=== PATIENT | male | born 1980 | race Caucasian/White ===

== ENCOUNTER 2023-09-18 08:38 | Inpatient (IN) | payer SELFPAY ==
[~2023-09-18] VITALS: Ht 172.7 cm; Wt 64.7 kg
[2023-09-18 09:20] LABS: HEMATOCRIT 43.4 % (42.0-52.0); HEMOGLOBIN 14.7 g/dl (13.5-17.5); MEAN CORPUSCULAR HEMOGLOBIN 30.5 pg (27.0-33.0); MEAN CORPUSCULAR HGB CONC 33.9 g/dl (32.0-36.5); PLATELET COUNT, AUTOMATED 291 10^3/uL (150-450); RED BLOOD COUNT 4.82 10^6/uL (4.30-6.10); WHITE BLOOD COUNT 10.3 10^3/uL (4.0-10.0)
[2023-09-18 09:43] LABS: ETHYL ALCOHOL (ETHANOL) < 0.003 % (0.000-0.010)
[2023-09-18 09:44] LABS: SALICYLATE LEVEL < 3.0 MG/DL (<30)
[2023-09-18 09:45] LABS: ALBUMIN 4.3 G/DL (3.2-5.2); ALKALINE PHOSPHATASE 70 U/L (46-116); ALT/SGPT 15 U/L (7.0-40); AST/SGOT 20 U/L (<34); BILIRUBIN,DIRECT 0.3 MG/DL (<0.4); BILIRUBIN,TOTAL 0.9 MG/DL (0.3-1.2); BLOOD UREA NITROGEN 20 MG/DL (9-23); CALCIUM LEVEL 9.4 MG/DL (8.5-10.1); CARBON DIOXIDE LEVEL 25 MMOL/L (20-31); CHLORIDE LEVEL 107 MMOL/L (98-107); CREATININE FOR GFR 1.26 MG/DL (0.70-1.30); GLOMERULAR FILTRATION RATE > 60.0 (>60); GLUCOSE, FASTING 84 MG/DL (60-100); POTASSIUM SERUM 3.9 MMOL/L (3.5-5.1); SODIUM LEVEL 141 MMOL/L (136-145); TOTAL PROTEIN 7.8 G/DL (5.7-8.2)
[2023-09-18 09:46] LABS: THYROID STIMULATING HORMONE 2.535 uIU/ML (0.55-4.78)
[2023-09-18] MEDS ORDERED: LATU1TAB PO (11:46)
[2023-09-18] MEDS ORDERED: ADDE10CA3 PO (11:46)
[2023-09-18] MEDS: ACETAMINOPHEN TAB 650MG DOSE (2X325MG) PO ONE (13:49)
[2023-09-18] MEDS ORDERED: PROBCAP14 PO (13:56)
[2023-09-18] MEDS ORDERED: MULTTAB61 PO (13:56)
[2023-09-18] MEDS ORDERED: [UNRECOGNIZED DRUG - CODE] PO (13:56)
[2023-09-18] MEDS ORDERED: BENF150C3 PO (13:56)
[2023-09-18] MEDS ORDERED: ONDA4TAB6 PO (13:56)
[2023-09-18] MEDS ORDERED: BIOT1CAP2 PO (13:56)
[2023-09-18] MEDS ORDERED: SIME125T16 PO (13:56)
[2023-09-18] MEDS ORDERED: MAG100TA PO (13:56)
[2023-09-18] MEDS ORDERED: APPL300T4 PO (13:56)
[2023-09-18] MEDS ORDERED: POTA99CA2 PO (13:56)
[2023-09-18] MEDS ORDERED: HOME MED LIST COMPLETE! XX SCH (14:00)
[2023-09-18 15:03] LABS: AMPHETAMINES LEVEL URINE NEGATIVE (NEGATIVE); BARBITURATES URINE NEGATIVE (NEGATIVE); BENZODIAZEPINES URINE NEGATIVE (NEGATIVE); COCAINE METABOLITE URINE NEGATIVE (NEGATIVE); METHADONE URINE NEGATIVE (NEGATIVE); OPIATES URINE NEGATIVE (NEGATIVE); PHENCYCLIDINE URINE NEGATIVE (NEGATIVE)
[2023-09-18 15:20] LABS: CANNABINOIDS URINE POSITIVE (NEGATIVE)
[2023-09-18] MEDS ORDERED: MOM 30ML SUSPENSION UDC PO PRN (17:10)
[2023-09-18] MEDS ORDERED: IBUPROFEN 400MG TAB PO PRN (17:10)
[2023-09-18 17:51] VITALS: BP 134/69; TEMP 98.7; O2SAT 100
[2023-09-18] MEDS: diphenhydrAMINE 25MG CAP PO PRN (20:24)
[2023-09-18] MEDS: MAALOX 30 ML SUSP *UDC PO PRN (20:24)
[2023-09-19] MEDS: ONDANSETRON 4MG TAB PO ONE (06:33)
[2023-09-19 06:42] VITALS: BP 158/80; TEMP 97.7; O2SAT 99
[2023-09-19 18:22] VITALS: BP 142/63; TEMP 98.1
[2023-09-19] MEDS: PALIPERIDONE 3MG ER TAB (INVEGA) PO SCH (20:33)
[2023-09-20 06:41] VITALS: BP 146/87; TEMP 97.9; O2SAT 100
[2023-09-20] MEDS: DIVALPROEX 250MG TAB PO SCH (09:20)
[2023-09-20] MEDS: PALIPERIDONE 3MG ER TAB (INVEGA) PO SCH (09:21)
[2023-09-20] MEDS: INFLUENZA QUADRIVALENT PF VACCINE 0.5ML SYRINGE IM.IMMUN ONE (09:22)
[2023-09-20 18:33] VITALS: BP 129/90; TEMP 97.6
[2023-09-20] MEDS: ACETAMINOPHEN TAB 650MG DOSE (2X325MG) PO PRN (20:01)
[2023-09-20] MEDS: DIVALPROEX 500 MG TAB PO SCH (20:01)
[2023-09-20] MEDS: traZODone 50 MG TAB PO PRN (22:25)
[2023-09-21] MEDS: OLANZapine ORAL DISINTEGRATING TAB 5MG PO PRN (05:45)
[2023-09-21 06:40] VITALS: BP 159/85; TEMP 97.1; O2SAT 99
[2023-09-21] MEDS: LORazepam 1 MG TAB PO ONE (12:01)
[2023-09-21] MEDS: LORazepam 1 MG TAB PO PRN (18:57)
[2023-09-21] MEDS ORDERED: HALOPERIDOL LACTATE 5MG/ML VIAL XX STA (19:22)
[2023-09-21] MEDS ORDERED: LORazepam 2 MG/ML 1ML VIAL XX STA (19:22)
[2023-09-21] MEDS ORDERED: diphenhydrAMINE 50MG/ML VIAL XX STA (19:22)
[2023-09-21] MEDS: diphenhydrAMINE 50MG CAP XX STA (19:42)
[2023-09-21] MEDS: LORazepam 2 MG TAB PO STA (19:42)
[2023-09-21] MEDS: DIVALPROEX 250MG TAB PO SCH (21:00)
[2023-09-22] MEDS: PROMETHAZINE 25 MG TAB PO ONE (06:42)
[2023-09-22] MEDS: DIVALPROEX 500 MG TAB PO SCH (12:25)
[2023-09-22 16:55] VITALS: BP 133/80; TEMP 97.1; O2SAT 98
[2023-09-23 06:26] VITALS: BP 123/69; TEMP 97.2; O2SAT 99
[2023-09-23] MEDS: PROMETHAZINE 25 MG TAB PO ONE (13:28)
[2023-09-23] MEDS: CALCIUM CARBONATE 500 MG CHEW U/D PO PRN (15:25)
[2023-09-23 16:20] VITALS: BP 126/76; TEMP 97.7; O2SAT 100
[2023-09-23] MEDS: diphenhydrAMINE 50MG CAP PO PRN (21:39)
[2023-09-24] MEDS: OMEPRAZOLE 20MG CAP PO SCH (08:16)
[2023-09-24 18:39] VITALS: BP 140/85; TEMP 97.5
[2023-09-24] MEDS: PALIPERIDONE 3MG ER TAB (INVEGA) PO SCH (20:07)
[2023-09-25 06:37] VITALS: BP 149/72; TEMP 97; O2SAT 98
[2023-09-25 18:59] VITALS: BP 115/56; TEMP 98.4
[2023-09-26 06:09] VITALS: BP 137/85; TEMP 97.8; O2SAT 98
[2023-09-26] MEDS ORDERED: PALIPERIDONE PAL 234MG/1.5ML INJ (INVEGA)(FREE PSY INPT ONLY) IM ONE (12:55)
[2023-09-26] MEDS: PALIPERIDONE PAL 234MG/1.5ML INJ (INVEGA)(FREE PSY INPT ONLY) IM ONE (14:32)
[2023-09-26 18:18] VITALS: BP 143/73; TEMP 97.8
[2023-09-26] MEDS: PALIPERIDONE 3MG ER TAB (INVEGA) PO SCH (21:11)
[2023-09-27 06:05] VITALS: BP 117/58; TEMP 97.6; O2SAT 95
[2023-09-27] MEDS: ONDANSETRON 4MG ORAL DISINTEGRATING TAB PO PRN (17:35)
[2023-09-27 18:31] VITALS: BP 133/86; TEMP 98.2; O2SAT 100
[2023-09-27] MEDS: LIDOCAINE 5% (LIDODERM) PATCH TD SCH (20:50)
[2023-09-28 06:54] VITALS: BP 122/59; TEMP 98.4; O2SAT 100
[2023-09-28 16:12] VITALS: BP 130/61; TEMP 98.2; O2SAT 100
[2023-09-29 06:26] VITALS: BP 115/57; TEMP 98.3; O2SAT 100
[2023-09-29 16:29] VITALS: BP 132/78; TEMP 98; O2SAT 99
[2023-09-30 07:01] VITALS: BP 98/50; TEMP 98.7; O2SAT 100
[2023-09-30] MEDS ORDERED: PALIPERIDONE PAL 156MG/1ML INJ(INVEGA)(FREE PSY INPT ONLY) IM ONE (07:45)
[2023-09-30] MEDS: PALIPERIDONE PAL 156MG/1ML INJ(INVEGA)(FREE PSY INPT ONLY) IM ONE (11:22)
[2023-09-30 15:56] VITALS: BP 128/65; TEMP 98.3; O2SAT 99
[2023-10-01 06:46] VITALS: BP 151/69; TEMP 97.3; O2SAT 97
[2023-10-01 18:00] VITALS: BP 119/74; TEMP 98.3
[2023-10-02 06:25] VITALS: BP 136/58; TEMP 98.1; O2SAT 100
[2023-10-02] MEDS ORDERED: INVE234I IM (08:36)
[2023-10-02] MEDS ORDERED: DEPA1TAB3 PO (08:36)
[2023-10-02] MEDS ORDERED: DEPA250T32 PO (08:36)
[2023-10-02] MEDS ORDERED: OMEP-173 PO (08:36)
== END 2023-10-02 10:07 | disposition home or self-care (01) | DRG 750 ==
LOC: M ED 08:38 → M PSY 17:09 → M ED INP 17:09 → M PSY 17:52
PROVIDERS: ADMIT Student in an Organized Health Care Education/Training Program; ATTEND Student in an Organized Health Care Education/Training Program
DX: F25.0 Schizoaffective disorder, bipolar type (principal); S62.165A Nondisplaced fracture of pisiform, left wrist, initial encounter for closed fracture; G47.00 Insomnia, unspecified; Z11.52 Encounter for screening for COVID-19; W19.XXXA Unspecified fall, initial encounter; Y92.9 Unspecified place or not applicable; Y93.9 Activity, unspecified; K21.9 Gastro-esophageal reflux disease without esophagitis; Z62.810 Personal history of physical and sexual abuse in childhood; Z79.899 Other long term (current) drug therapy; Z88.0 Allergy status to penicillin

== ENCOUNTER → 2024-05-21 | Outpatient (CLI) | payer OTHER ==
[~2024-05-21] MED LIST: ADDE10CA3 PO; APPL300T4 PO; BENF150C3 PO; BIOT1CAP2 PO; DEPA1TAB3 PO; DEPA250T32 PO; INVE234I IM; LATU1TAB PO; MAG100TA PO; MULTTAB61 PO; OMEP-173 PO; ONDA-282 PO; POTA99CA2 PO; PROBCAP14 PO; SIME125T16 PO; [UNRECOGNIZED DRUG - CODE] PO
[2024-05-21 14:15] LABS: BASO % 0.7 % (0.0-1.0); EOS # 0.2 10^3/uL (0.0-0.5); EOS % 3.2 % (0.0-3.0); HEMATOCRIT 38.5 % (42.0-52.0); HEMOGLOBIN 12.8 g/dl (13.5-17.5); LYMPH # 2.6 10^3/uL (1.5-5.0); LYMPH % 48.7 % (24.0-44.0); MEAN CORPUSCULAR HEMOGLOBIN 30.3 pg (27.0-33.0); MEAN CORPUSCULAR HGB CONC 33.2 g/dl (32.0-36.5); MONO # 0.4 10^3/uL (0.0-0.8); MONO % 6.7 % (2.0-8.0); NEUTROPHILS # 2.2 10^3/uL (1.5-8.5); NEUTROPHILS % 40.3 % (36.0-66.0); PLATELET COUNT, AUTOMATED 248 10^3/uL (150-450); RED BLOOD COUNT 4.23 10^6/uL (4.30-6.10); WHITE BLOOD COUNT 5.3 10^3/uL (4.0-10.0)
[2024-05-21 14:30] LABS: ALBUMIN 4.2 G/DL (3.2-5.2); ALKALINE PHOSPHATASE 52 U/L (40-129); ALT/SGPT 12 U/L (7.0-40); AST/SGOT 13 U/L (<34); BILIRUBIN,TOTAL 0.6 MG/DL (0.3-1.2); BLOOD UREA NITROGEN 18 MG/DL (9-23); CALCIUM LEVEL 10.2 MG/DL (8.5-10.1); CARBON DIOXIDE LEVEL 31 MMOL/L (20-31); CHLORIDE LEVEL 105 MMOL/L (98-107); CHOLESTEROL LEVEL 274 MG/DL (<200); CHOLESTEROL RISK RATIO 5.67 (<5); CREATININE FOR GFR 1.07 MG/DL (0.70-1.30); FREE T4 1.17 NG/DL (0.89-1.76); GLOMERULAR FILTRATION RATE > 60.0 (>60); GLUCOSE, FASTING 85 MG/DL (60-100); HDL CHOLESTEROL 48.3 MG/DL (>40); LDL CHOLESTEROL 208.9 MG/DL (<100); NON-HDL-C 225.7 MG/DL; POTASSIUM SERUM 4.4 MMOL/L (3.5-5.1); SODIUM LEVEL 142 MMOL/L (136-145); THYROID STIMULATING HORMONE 4.186 uIU/ML (0.55-4.78); TOTAL PROTEIN 7.6 G/DL (5.7-8.2); TRIGLYCERIDES LEVEL 84 MG/DL (<150)
[2024-05-21 14:34] LABS: HEMOGLOBIN A1c 5.1 % (4.0-6.0)
== END ==
LOC: M PLALAB 09:26
PROVIDERS: ATTEND Student in an Organized Health Care Education/Training Program
DX: Z76.89 Persons encountering health services in other specified circumstances (principal); Z13.1 Encounter for screening for diabetes mellitus; Z13.21 Encounter for screening for nutritional disorder; Z13.220 Encounter for screening for lipoid disorders; Z13.29 Encounter for screening for other suspected endocrine disorder

== ENCOUNTER → 2024-06-27 | Outpatient (CLI) | payer OTHER ==
[2024-06-27 15:41] LABS: HEMATOCRIT 40.1 % (42.0-52.0)
[2024-06-27 15:43] LABS: C REACTIVE PROTEIN QUANTITATIV < 0.50 MG/DL (<1.0); IRON (FE) 113 UG/DL (65-175); PERCENT SATURATION 41.1 % (19.7-50.0); TOTAL IRON BINDING CAPACITY 275 UG/DL (250-425)
[2024-06-27 15:49] LABS: FERRITIN 233.3 NG/ML (10.5-307.3)
[2024-06-27 15:50] LABS: ERYTHROCYTE SEDIMENTATION RATE 18 mm/hr (0-15); VITAMIN B12 LEVEL 467 PG/ML (211-911)
[2024-06-29 02:38] LABS: T P ELECTROPHORESIS SO 7.6 g/dL (6.1-8.1)
== END ==
LOC: M PLALAB 12:53
PROVIDERS: ATTEND Student in an Organized Health Care Education/Training Program
DX: D64.9 Anemia, unspecified (principal); E83.52 Hypercalcemia

== ENCOUNTER → 2024-06-30 | Outpatient (REF) | payer OTHER ==
[2024-07-01 11:51] LABS: PROTEIN CREAT 24H RATIO 45 mg/g creat (<100); T PROTEIN CREAT 24HR RATIO 0.045 (<0.100); Urine Total Protein 49 mg/24 h (<150)
[2024-07-02 09:52] LABS: Urine Albumin % 38 %; Urine Alpha-1-Globulin % 7 %; Urine Alpha-2-Globulin % 22 %; Urine Beta Globulin % 16 %; Urine Gamma Globulin % 16 %
== END ==
LOC: M SFHCPLAZ 14:34
PROVIDERS: ATTEND Student in an Organized Health Care Education/Training Program
DX: E83.52 Hypercalcemia (principal)

== ENCOUNTER → 2024-09-21 | Outpatient (REF) | payer OTHER | LOC: M LAB REF 10:18 | PROVIDERS: ATTEND Internal Medicine | DX: D64.9 Anemia, unspecified (principal) ==

== ENCOUNTER 2024-12-03 17:33 | Emergency (ER) | payer OTHER ==
[~2024-12-03] VITALS: Ht 172.7 cm; Wt 68.2 kg
[~2024-12-03 17:33] MED LIST changes: -DEPA250T32 PO; +DIVA-65 PO
[2024-12-03 19:08] VITALS: BP 133/79; TEMP 98.2; O2SAT 100
== END 2024-12-03 19:17 | disposition home or self-care (01) ==
LOC: M ED 17:33
DX: S52.501A Unspecified fracture of the lower end of right radius, initial encounter for closed fracture (principal); S52.614A Nondisplaced fracture of right ulna styloid process, initial encounter for closed fracture; W19.XXXA Unspecified fall, initial encounter; Y92.410 Unspecified street and highway as the place of occurrence of the external cause; Y93.51 Activity, roller skating (inline) and skateboarding; Y99.9 Unspecified external cause status; F90.0 Attention-deficit hyperactivity disorder, predominantly inattentive type; K21.9 Gastro-esophageal reflux disease without esophagitis; Z79.899 Other long term (current) drug therapy; Z88.0 Allergy status to penicillin

== ENCOUNTER 2024-12-14 19:05 | Inpatient (IN) | payer OTHER ==
[~2024-12-14] VITALS: Ht 172.7 cm; Wt 64.0 kg
[2024-12-14 20:00] LABS: PLATELET COUNT, AUTOMATED 276 10^3/uL (150-450)
[2024-12-14 20:27] LABS: ETHYL ALCOHOL (ETHANOL) < 0.003 % (0.000-0.010)
[2024-12-14 20:29] LABS: ALT/SGPT 15 U/L (7.0-40); AST/SGOT 24 U/L (<34); CALCIUM LEVEL 9.7 MG/DL (8.5-10.1); CARBON DIOXIDE LEVEL 28 MMOL/L (20-31); CHLORIDE LEVEL 104 MMOL/L (98-107); CREATININE FOR GFR 1.21 MG/DL (0.70-1.30); GLOMERULAR FILTRATION RATE 76.7 (>60); POTASSIUM SERUM 4.3 MMOL/L (3.5-5.1); SALICYLATE LEVEL < 3.0 MG/DL (<30); SODIUM LEVEL 143 MMOL/L (136-145)
[2024-12-14 21:40] LABS: AMPHETAMINES LEVEL URINE NEGATIVE (NEGATIVE); BARBITURATES URINE NEGATIVE (NEGATIVE); BENZODIAZEPINES URINE NEGATIVE (NEGATIVE); COCAINE METABOLITE URINE NEGATIVE (NEGATIVE); METHADONE URINE NEGATIVE (NEGATIVE); OPIATES URINE NEGATIVE (NEGATIVE); PHENCYCLIDINE URINE NEGATIVE (NEGATIVE)
[2024-12-14 21:43] LABS: CANNABINOIDS URINE POSITIVE (NEGATIVE)
[2024-12-14] MEDS ORDERED: OLANZapine ORAL DISINTEGRATING TAB 5MG PO PRN (23:10)
[2024-12-14] MEDS ORDERED: traZODone 50 MG TAB PO PRN (23:10)
[2024-12-15 00:09] VITALS: BP 108/64; TEMP 97.1; O2SAT 98
[2024-12-15] MEDS: MAALOX 30 ML SUSP *UDC PO PRN (00:42)
[2024-12-15] MEDS: ACETAMINOPHEN 325 MG TAB PO PRN (05:58)
[2024-12-15] MEDS ORDERED: HOME MED LIST COMPLETE! XX SCH (08:10)
[2024-12-15] MEDS: MOM 30 ML SUSPENSION UDC PO PRN (09:51)
[2024-12-15 16:38] VITALS: BP 128/74; TEMP 97.2; O2SAT 99
[2024-12-15] MEDS: DIVALPROEX 500 MG *ER* TAB PO SCH (20:22)
[2024-12-16 16:27] VITALS: BP 115/56; TEMP 98.2; O2SAT 98
[2024-12-16] MEDS: IBUPROFEN 400 MG TAB PO PRN (18:34)
[2024-12-17 06:43] VITALS: BP 137/64; TEMP 97.7; O2SAT 97
[2024-12-17 15:21] VITALS: BP 116/58; TEMP 97.5; O2SAT 99
[2024-12-18 06:43] VITALS: BP 101/51; TEMP 98; O2SAT 97
[2024-12-18 15:02] VITALS: BP 142/67; TEMP 97.5; O2SAT 100
[2024-12-18] MEDS: DIVALPROEX 250 MG *ER* TAB PO SCH (20:27)
[2024-12-19 06:36] VITALS: BP 110/54; TEMP 97.9; O2SAT 97
[2024-12-19 15:17] VITALS: BP 143/81; TEMP 97.3; O2SAT 98
[2024-12-20 06:55] VITALS: BP 122/72; TEMP 97.9; O2SAT 98
[2024-12-20] MEDS: ONDANSETRON 4MG TAB PO PRN (12:57)
[2024-12-20 14:57] VITALS: BP 133/75; TEMP 98; O2SAT 97
[2024-12-21 06:45] VITALS: BP 137/72; TEMP 98.3; O2SAT 99
[2024-12-21 15:31] VITALS: BP 129/72; TEMP 98.1; O2SAT 99
[2024-12-22] MEDS ORDERED: DEPA250T PO ×2 (09:42→15:37)
[2024-12-22] MEDS ORDERED: DEPA500T2 PO (15:37)
== END 2024-12-22 11:52 | disposition home or self-care (01) | DRG 885 ==
LOC: M ED 19:05 → M ED INP 23:07 → M PSY 12-15 00:03
PROVIDERS: ADMIT Student in an Organized Health Care Education/Training Program; ATTEND Student in an Organized Health Care Education/Training Program
DX: F31.2 Bipolar disorder, current episode manic severe with psychotic features (principal); F41.9 Anxiety disorder, unspecified; F10.10 Alcohol abuse, uncomplicated; F12.90 Cannabis use, unspecified, uncomplicated; Z91.148 Patient's other noncompliance with medication regimen for other reason; Z88.0 Allergy status to penicillin; G40.909 Epilepsy, unspecified, not intractable, without status epilepticus; L40.8 Other psoriasis

== ENCOUNTER → 2024-12-26 | Outpatient (CLI) | payer OTHER ==
[~2024-12-26] MED LIST changes: +DEPA250T PO; +DEPA500T2 PO
== END ==
LOC: M SOG 06:52
PROVIDERS: ATTEND Orthopaedic Surgery
DX: M25.531 Pain in right wrist (principal); S52.571D Other intraarticular fracture of lower end of right radius, subsequent encounter for closed fracture with routine healing; S52.611D Displaced fracture of right ulna styloid process, subsequent encounter for closed fracture with routine healing

== ENCOUNTER 2025-01-19 20:51 | Inpatient (IN) | payer OTHER ==
[~2025-01-19] VITALS: Ht 172.7 cm; Wt 65.6 kg
[2025-01-19 21:27] LABS: PLATELET COUNT, AUTOMATED 325 10^3/uL (150-450)
[2025-01-19 21:56] LABS: ETHYL ALCOHOL (ETHANOL) < 0.003 % (0.000-0.010)
[2025-01-19 21:58] LABS: ALT/SGPT 24 U/L (7.0-40); AST/SGOT 23 U/L (<34); CALCIUM LEVEL 9.9 MG/DL (8.5-10.1); CARBON DIOXIDE LEVEL 24 MMOL/L (20-31); CHLORIDE LEVEL 107 MMOL/L (98-107); CREATININE FOR GFR 1.02 MG/DL (0.70-1.30); GLOMERULAR FILTRATION RATE > 90.0 (>60); POTASSIUM SERUM 3.7 MMOL/L (3.5-5.1); SALICYLATE LEVEL < 3.0 MG/DL (<30); SODIUM LEVEL 143 MMOL/L (136-145)
[2025-01-20 00:43] LABS: AMPHETAMINES LEVEL URINE NEGATIVE (NEGATIVE); BARBITURATES URINE NEGATIVE (NEGATIVE); CANNABINOIDS URINE NEGATIVE (NEGATIVE); COCAINE METABOLITE URINE NEGATIVE (NEGATIVE); METHADONE URINE NEGATIVE (NEGATIVE); OPIATES URINE NEGATIVE (NEGATIVE); PHENCYCLIDINE URINE NEGATIVE (NEGATIVE)
[2025-01-20 00:44] LABS: BENZODIAZEPINES URINE NEGATIVE (NEGATIVE)
[2025-01-20] MEDS ORDERED: ASHW300C2 PO (07:50)
[2025-01-20] MEDS ORDERED: S AD MC (07:50)
[2025-01-20] MEDS ORDERED: VITA100051 PO (07:50)
[2025-01-20] MEDS ORDERED: BENF150C3 PO (07:50)
[2025-01-20] MEDS ORDERED: [UNRECOGNIZED DRUG - CODE] PO (08:24)
[2025-01-20] MEDS ORDERED: HOME MED LIST COMPLETE! XX SCH (08:25)
[2025-01-20] MEDS ORDERED: traZODone 50 MG TAB PO PRN (10:25)
[2025-01-20 11:09] LABS: VALPROIC ACID (DEPAKOTE) < 3.0 UG/ML (50.0-100.0)
[2025-01-20 11:15] VITALS: BP 122/60; TEMP 98.1; O2SAT 100
[2025-01-20 17:38] VITALS: BP 142/63; TEMP 98
[2025-01-20] MEDS: ACETAMINOPHEN 325 MG TAB PO PRN (18:13)
[2025-01-20] MEDS: IBUPROFEN 400 MG TAB PO PRN (20:22)
[2025-01-20] MEDS: MAALOX 30 ML SUSP *UDC PO PRN (20:22)
[2025-01-21] MEDS: MOM 30 ML SUSPENSION UDC PO PRN (18:00)
[2025-01-21] MEDS: DIVALPROEX 250 MG *ER* TAB PO SCH (20:44)
[2025-01-22 16:03] VITALS: BP 125/76; TEMP 97.9; O2SAT 98
[2025-01-23 06:37] VITALS: BP 134/80; TEMP 98.4; O2SAT 95
[2025-01-23] MEDS ORDERED: RISPERIDONE 1 MG TAB PO SCH (09:00)
[2025-01-23 10:18] VITALS: BP 134/80; TEMP 98.4; O2SAT 95
[2025-01-23] MEDS: ONDANSETRON 4MG TAB PO PRN (10:55)
[2025-01-23 15:50] VITALS: BP 116/70; TEMP 98; O2SAT 99
[2025-01-24 06:29] VITALS: BP 124/66; TEMP 98; O2SAT 98
[2025-01-24 15:58] VITALS: BP 140/90; TEMP 97.2; O2SAT 95
[2025-01-24] MEDS: DIVALPROEX 500 MG *ER* TAB PO SCH (20:24)
[2025-01-25 06:42] VITALS: BP 137/88; TEMP 97.8; O2SAT 99
[2025-01-25 15:03] VITALS: BP 130/79; TEMP 98.3; O2SAT 98
[2025-01-26 06:39] VITALS: BP 138/83; TEMP 97.5; O2SAT 99
[2025-01-26 15:55] VITALS: BP 142/88; TEMP 97.6; O2SAT 98
[2025-01-27 06:34] VITALS: BP 135/77; TEMP 97.5; O2SAT 98
[2025-01-27 15:28] VITALS: BP 134/77; TEMP 97.8; O2SAT 99
[2025-01-28 06:50] VITALS: BP 123/74; TEMP 97.5; O2SAT 99
[2025-01-28] MEDS ORDERED: ABIL1TAB13 PO (08:54)
== END 2025-01-28 15:43 | disposition home or self-care (01) | DRG 885 ==
LOC: M ED 20:51 → M ED INP 01-20 10:21 → M PSY 01-20 11:01
PROVIDERS: ADMIT General Practice; ATTEND General Practice
DX: F31.2 Bipolar disorder, current episode manic severe with psychotic features (principal); S52.91XA Unspecified fracture of right forearm, initial encounter for closed fracture; Z91.148 Patient's other noncompliance with medication regimen for other reason; Z88.0 Allergy status to penicillin; F12.10 Cannabis abuse, uncomplicated; Z79.899 Other long term (current) drug therapy; Y04.0XXD Assault by unarmed brawl or fight, subsequent encounter; Y92.009 Unspecified place in unspecified non-institutional (private) residence as the place of occurrence of the external cause

== ENCOUNTER → 2025-02-03 | Outpatient (CLI) | payer OTHER ==
[~2025-02-03] MED LIST changes: +ABIL1TAB13 PO; +ASHW300C2 PO; +S AD MC; +VITA100051 PO; +[UNRECOGNIZED DRUG - CODE] PO
== END ==
LOC: M SOG 07:15
PROVIDERS: ATTEND Orthopaedic Surgery
DX: S52.571P Other intraarticular fracture of lower end of right radius, subsequent encounter for closed fracture with malunion (principal)